=== PATIENT | female | born 1985 | race Caucasian/White ===

== ENCOUNTER 2020-05-19 08:22 | Emergency (ER) | payer BC ==
[2020-05-19] MEDS ORDERED: HYDROcodone 7.5MG/APAP 325MG 1 EA TAB PO ONE (08:48)
[2020-05-19] MEDS ORDERED: predniSONE 20 MG TAB PO ONE (08:48)
[2020-05-19] MEDS ORDERED: KETOROLAC TROMETHAMINE INJ 30 MG/ML VIAL IM ONE (10:19)
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
[2020-05-19 12:05] VITALS: BP 137/103; TEMP 97.7; O2SAT 96
== END 2020-05-19 12:01 | disposition home or self-care (01) ==
LOC: ER 08:22
DX: S32.2XXA Fracture of coccyx, initial encounter for closed fracture (principal); S39.012A Strain of muscle, fascia and tendon of lower back, initial encounter; S20.211A Contusion of right front wall of thorax, initial encounter; S20.212A Contusion of left front wall of thorax, initial encounter; S30.1XXA Contusion of abdominal wall, initial encounter; I10 Essential (primary) hypertension; Z88.5 Allergy status to narcotic agent; Z79.899 Other long term (current) drug therapy; V49.88XA Car occupant (driver) (passenger) injured in other specified transport accidents, initial encounter; Y92.410 Unspecified street and highway as the place of occurrence of the external cause
CPT/HCPCS: 36415; 71046; 72040; 72100; 72220; 74019; 80053; 81001; 82150; 82550; 82553; 83690; 84484; 84703; 85025; 85610; 85730; 93005; J1885; J7512